=== PATIENT | female | born 2000 | race Caucasian/White ===

== ENCOUNTER 2022-12-12 21:26 | Day surgery (SDC) | payer OTHER ==
[2022-12-12 21:50] VITALS: BMI 54.1
== END 2022-12-13 00:35 | disposition home or self-care (01) ==
LOC: CSHLD/OP 21:26
PROVIDERS: ATTEND Obstetrics & Gynecology
DX: O9A.213 Injury, poisoning and certain other consequences of external causes complicating pregnancy, third trimester (principal); Z3A.36 36 weeks gestation of pregnancy; Z91.018 Allergy to other foods; W19.XXXA Unspecified fall, initial encounter

== ENCOUNTER 2023-01-12 18:11 | Day surgery (SDC) | payer OTHER ==
[2023-01-12 18:54] VITALS: BMI 56.3
[2023-01-12 20:11] LABS: Bilirubin Neg (Negative); Blood, Urine 50 (Negative); Clarity Clear (Clear); Glucose, Urine (Dipstick) Normal (Negative); Ketone, Urine 5 mg/dL (Negative); Leukocyte Negative (Negative); Nitrite Negative (Negative); Protein, Urine (Dipstick) 30 mg/dl (Neg-Trace); Specific Gravity, Urine 1.025 (1.005-1.030)
[2023-01-12 20:18] LABS: Bacteria/HPF 1+ HPF (None Seen); RBC/HPF 0-3 HPF (0-3); Squamous Epithelial 0-3 HPF (0-3); Transitional Epithelial 0-3 HPF (None Seen); WBC/HPF 0-3 HPF (0-3)
[2023-01-12 20:19] LABS: Calcium Oxalate Crystals 2+ HPF (None Seen); Mucous/LPF Rare LPF (<2+)
[2023-01-12 20:24] LABS: Fetal Membranes Rupture No Membranes Rupture (No Rupture)
[2023-01-12] MEDS ORDERED: Acetaminophen 500 MG TAB PO SCH (21:00)
== END 2023-01-12 23:55 | disposition home or self-care (01) ==
LOC: CSHLD/OP 18:11
PROVIDERS: ATTEND Obstetrics & Gynecology
DX: O41.93X0 Disorder of amniotic fluid and membranes, unspecified, third trimester, not applicable or unspecified (principal); O47.03 False labor before 37 completed weeks of gestation, third trimester; Z91.018 Allergy to other foods; Z3A.36 36 weeks gestation of pregnancy
CPT/HCPCS: 81003; 81015; 84112; 87480; 87510; 87660

== ENCOUNTER 2023-01-27 18:00 | Inpatient (IN) | payer OTHER ==
[2023-01-27] MEDS ORDERED: Ibuprofen 800 MG TAB PO PRN (18:11)
[2023-01-27] MEDS ORDERED: Diphenoxylate HCl/Atropine Tablet PO PRN ×2 (18:11)
[2023-01-27] MEDS ORDERED: HYDROcodone/Acetaminophen 5/325 mg Tablet PO PRN ×2 (18:11)
[2023-01-27] MEDS ORDERED: Lactated Ringer's 1,000 ML IV SCH (18:11)
[2023-01-27] MEDS ORDERED: Carboprost 250 MCG/ML AMP IM PRN (18:11)
[2023-01-27] MEDS ORDERED: hydrALAZINE 20 MG/ML VIAL SLOW IVP PRN (18:11)
[2023-01-27] MEDS ORDERED: Lidocaine 1% (PF) 30 ML VIAL SC PRN (18:11)
[2023-01-27] MEDS ORDERED: Tranexamic Acid 1,000 MG/10 ML VIAL IVP PRN (18:11)
[2023-01-27] MEDS ORDERED: Oxytocin 30 units/NS 500 ML 500 ML IV SCH ×2 (18:11)
[2023-01-27] MEDS ORDERED: Ondansetron PF 4 MG/2 ML Vial IVP PRN (18:11)
[2023-01-27] MEDS ORDERED: Misoprostol 200 MCG TAB PR PRN (18:11)
[2023-01-27] MEDS ORDERED: Zolpidem Tartrate 5 MG TAB PO PRN (18:11)
[2023-01-27] MEDS ORDERED: Promethazine HCl 25 MG/ML VIAL IM PRN (18:11)
[2023-01-27] MEDS ORDERED: Acetaminophen 500 MG TAB PO PRN (18:11)
[2023-01-27 18:38] VITALS: BMI 58.9
[2023-01-27 19:11] LABS: Hematocrit 35.3 % (34.9-44.5); Hemoglobin 11.9 g/dL (12.0-15.5); Mean Corpuscular HGB CONC 33.7 g/dL (32.0-36.0); Mean Corpuscular Hemoglobin 28.8 pg (27.0-33.0); Mean Corpuscular Volume 85.5 fl (81.6-98.3); Mean Platelet Volume 10.1 fl (7.4-10.4); Platelet Count 316 10x3/uL (150-450); Red Blood Cell (RBC) Count 4.13 10x6/uL (3.90-5.03); White Blood Cell (WBC) Count 11.3 10x3/uL (3.5-10.5)
[2023-01-27] MEDS: Misoprostol 100 MCG TAB VAG SCH (19:23)
[2023-01-27 19:34] LABS: ALT (SGPT) 12 U/L (8-55); AST (SGOT) 16 U/L (5-34); Alkaline Phosphatase 176 U/L (40-110); Anion Gap 18 mmol/L (10-20); BUN (Urea Nitrogen) 8 mg/dL (7.0-18.7); Bilirubin, Total 0.3 mg/dL (0.2-1.2); Calc. Creatinine Clearance 331 mL/min (70-130); Calcium 8.9 mg/dL (7.8-10.44); Carbon Dioxide 17 mmol/L (22-29); Chloride 108 mmol/L (98-107); Estimated GFR 130; Globulin 2.7 g/dL (2.4-3.5); Glucose 92 mg/dL (70-105); Potassium 4.2 mmol/L (3.5-5.1); Protein, Total 5.7 g/dL (6.0-8.3); Sodium 139 mmol/L (136-145)
[2023-01-27 19:54] LABS: Syphilis Antibody Nonreactive (Nonreactive); Syphilis Antibody Index 0.03 S/CO (<1.00 Non-Reactive)
[2023-01-27 19:55] LABS: HBSAg Index 0.11 S/CO (0-0.99); Hep B Surf Ag - L&D Non-Reactive S/CO (NonReactive)
[2023-01-28] MEDS: fentaNYL 50 mcg/mL 1 mL Vial SLOW IVP PRN ×2 (03:05→05:22)
[2023-01-28] MEDS ORDERED: Promethazine HCl 25 MG/ML VIAL IM PRN (05:37)
[2023-01-28] MEDS ORDERED: diphenhydrAMINE 50 MG/ML VIAL IVP PRN (05:37)
[2023-01-28] MEDS ORDERED: ePHEDrine Sulfate 50 MG/10 ML VIAL SLOW IVP PRN (05:37)
[2023-01-28] MEDS ORDERED: Naloxone HCl 0.4 mg/ml Vial IVP PRN ×2 (05:37)
[2023-01-28] MEDS ORDERED: Ondansetron PF 4 MG/2 ML Vial IVP PRN (05:37)
[2023-01-28] MEDS ORDERED: Acetaminophen 325 MG TAB PO PRN (05:37)
[2023-01-28] MEDS ORDERED: Moisturizing Cream (Eucerin) 113 GM JAR TOP PRN (05:37)
[2023-01-28] MEDS ORDERED: Lactated Ringer's 500 ML IV PRN (05:37)
[2023-01-28] MEDS ORDERED: Communication Order-Pharmacy FS SCH (05:45)
[2023-01-28] MEDS ORDERED: fentaNYL 2 mcg/Ropivacaine 0.2% Epidural 100 ML CADD EPIDURAL SCH (05:45)
[2023-01-28] MEDS ORDERED: fentaNYL/Ropivacaine Epidural 100 ML ONE (05:48)
[2023-01-28] MEDS ORDERED: hydrALAZINE 20 MG/ML VIAL SLOW IVP PRN (18:23)
[2023-01-28] MEDS ORDERED: diphenhydrAMINE 25 MG CAP PO PRN (18:23)
[2023-01-28] MEDS ORDERED: Lanolin Ointment 7 GM TUBE TOP PRN (18:23)
[2023-01-28] MEDS ORDERED: Milk Of Magnesia 30 ML UDCUP PO PRN (18:23)
[2023-01-28] MEDS ORDERED: Bisacodyl 10 MG SUPP PR PRN (18:23)
[2023-01-28] MEDS ORDERED: traMADol HCl 50 MG TAB PO PRN (18:23)
[2023-01-28] MEDS ORDERED: Boostrix 0.5 ML (Tdap) VIAL (>/=7 yrs of age) IM ONE (18:23)
[2023-01-28] MEDS: Misoprostol 100 MCG TAB VAG SCH ×2 (18:32→18:33)
[2023-01-28] MEDS ORDERED: Bupivacaine 0.25% HCL 30 ML VIAL ONE (18:41)
[2023-01-28] MEDS: traMADol HCl 50 MG TAB PO PRN (18:57)
[2023-01-28] MEDS: Benzocaine-Menthol 82.5 ML CAN TOP PRN (18:58)
[2023-01-28] MEDS ORDERED: Ferrous Sulfate 325 MG TAB PO SCH (19:30)
[2023-01-28] MEDS: Docusate 100 MG CAP PO SCH (21:47)
[2023-01-28] MEDS: Ibuprofen 800 MG TAB PO SCH (21:47)
[2023-01-29] MEDS: Ibuprofen 800 MG TAB PO SCH ×3 (05:30→22:05)
[2023-01-29] MEDS: Benzocaine-Menthol 82.5 ML CAN TOP PRN (05:43)
[2023-01-29] MEDS: Ferrous Sulfate 325 MG TAB PO SCH ×2 (08:01→17:43)
[2023-01-29] MEDS: Prenatal Vitamin 1 TAB PO SCH (08:47)
[2023-01-29] MEDS: traMADol HCl 50 MG TAB PO PRN ×2 (08:47→19:15)
[2023-01-29] MEDS: Docusate 100 MG CAP PO SCH ×2 (08:47→22:05)
[2023-01-30] MEDS: Ibuprofen 800 MG TAB PO SCH (05:30)
[2023-01-30] MEDS: Ferrous Sulfate 325 MG TAB PO SCH (07:59)
[2023-01-30] MEDS: Docusate 100 MG CAP PO SCH (08:03)
[2023-01-30] MEDS: Prenatal Vitamin 1 TAB PO SCH (08:03)
[2023-01-30 11:16] VITALS: BP 127/71; TEMP 98
== END 2023-01-30 12:50 | disposition home or self-care (01) | DRG 807 ==
LOC: CSHLD 18:00 → CSHPP 01-28 18:17
PROVIDERS: ADMIT Obstetrics & Gynecology; ATTEND Obstetrics & Gynecology
PROC: 10E0XZZ Delivery of Products of Conception, External Approach (ICD-10-PCS; principal; 2023-01-28)
PROC: 0KQM0ZZ Repair Perineum Muscle, Open Approach (ICD-10-PCS; 2023-01-28)
PROC: 3E0P7VZ Introduction of Hormone into Female Reproductive, Via Natural or Artificial Opening (ICD-10-PCS; 2023-01-28)
PROC: 10H07YZ Insertion of Other Device into Products of Conception, Via Natural or Artificial Opening (ICD-10-PCS; 2023-01-28)
PROC: 3E033XZ Introduction of Vasopressor into Peripheral Vein, Percutaneous Approach (ICD-10-PCS; 2023-01-28)
DX: O13.4 Gestational [pregnancy-induced] hypertension without significant proteinuria, complicating childbirth (principal); Z37.0 Single live birth; O99.214 Obesity complicating childbirth; E66.01 Morbid (severe) obesity due to excess calories; Z3A.38 38 weeks gestation of pregnancy; Z90.89 Acquired absence of other organs; O70.1 Second degree perineal laceration during delivery
CPT/HCPCS: 36415; 51702; 80053; 85027; 86780; 86850; 86900; 86901; 87340; J2590; J3010; S0020

== ENCOUNTER 2024-01-17 09:40 | Day surgery (SDC) | payer OTHER ==
[2024-01-17 10:16] VITALS: BMI 52.0
[2024-01-17] MEDS ORDERED: hydrALAZINE 20 MG/ML VIAL SLOW IVP PRN (10:16)
[2024-01-17] MEDS: Acetaminophen 500 MG TAB PO SCH (10:57)
[2024-01-17 10:58] LABS: #Basophils 0.04 10x3/uL (0.0-0.2); #Eosinophils 0.09 10x3/uL (0.0-0.5); #Monocytes 0.59 10x3/uL (0.0-1.1); #Neutrophils 6.82 10x3/uL (1.5-8.4); %Basophils 0.4 % (0.0-2.0); %Eosinophils 0.9 % (0.0-6.0); %Lymphocytes 24.1 % (18.0-47.0); %Monocytes 5.9 % (0.0-10.0); %Neutrophils 68.4 % (40.0-75.0); Hemoglobin 12.3 g/dL (12.0-15.5); Mean Corpuscular HGB CONC 34.2 g/dL (32.0-36.0); Mean Corpuscular Hemoglobin 29.3 pg (27.0-33.0); Mean Corpuscular Volume 85.7 fL (81.6-98.3); Mean Platelet Volume 9.4 fL (7.4-10.4); Platelet Count 271 10x3/uL (150-450); RBC Distribution Width 13.2 % (11.5-14.5)
== END 2024-01-17 11:30 | disposition home or self-care (01) ==
LOC: CSHLD/OP 09:40
PROVIDERS: ATTEND Obstetrics & Gynecology
DX: O99.891 Other specified diseases and conditions complicating pregnancy (principal); R51.9 Headache, unspecified; O99.282 Endocrine, nutritional and metabolic diseases complicating pregnancy, second trimester; E28.2 Polycystic ovarian syndrome; O99.212 Obesity complicating pregnancy, second trimester; O99.612 Diseases of the digestive system complicating pregnancy, second trimester; K21.9 Gastro-esophageal reflux disease without esophagitis; Z79.82 Long term (current) use of aspirin; Z79.899 Other long term (current) drug therapy; Z91.018 Allergy to other foods; Z3A.20 20 weeks gestation of pregnancy
CPT/HCPCS: 85025; 99282

== ENCOUNTER 2024-02-26 16:54 | Emergency (ER) | payer OTHER ==
[2024-02-26] MEDS ORDERED: Metoclopramide 10 MG/10 ML UDCUP ONE (17:51)
== END 2024-02-26 17:57 | disposition home or self-care (01) ==
LOC: CSHERS 16:54
DX: O99.891 Other specified diseases and conditions complicating pregnancy (principal); R51.9 Headache, unspecified
CPT/HCPCS: 99283